=== PATIENT | male | born 1945 | race Caucasian/White ===

== ENCOUNTER 2017-04-26 08:32 | Outpatient (CLI) | payer OTHER ==
[~2017-04-26 08:32] MED LIST: HYOSCYAMINE0.125 M1 SL; INTESTINEX1 CA1 PO; PROTONIX40 MG PO; TRAM1TAB98 PO
== END 2017-04-26 11:21 | disposition home or self-care (01) ==
LOC: TOM 08:32
DX: C18.7 Malignant neoplasm of sigmoid colon (principal); C20 Malignant neoplasm of rectum
CPT/HCPCS: 71270; 74178; Q9965

== ENCOUNTER 2017-08-29 08:04 | Outpatient (CLI) | payer OTHER | END 2017-08-29 08:07 | disposition home or self-care (01) | LOC: SONOGRAMA 08:04 | DX: E04.2 Nontoxic multinodular goiter (principal) ==